=== PATIENT | male | born 1940 ===

== ENCOUNTER 2020-02-08 11:39 | Inpatient (IN) | payer OTHER, MEDICARE ==
[~2020-02-08] VITALS: Ht 177.8 cm; Wt 68.9 kg
[~2020-02-08 11:39] MED LIST: AMLO10 PO; ASPI325 PO; Bactrim Ds Tab1 EACH PO; CARV6.25 PO; CEPH500 PO; CLOP75 PO; FURO20 PO; HYDACE5 PO; HYDR1TAB94 PO; ISOD40ER PO; LISI20 PO; LISI5 PO; Lisinopril2.5 MG; MECL25 PO; NICO7 TOP; NITR.4SL SL; OMEP20ER PO; OXYC5 PO; ROSU10TA PO; SIMV20 PO
[2020-02-08 13:51] LABS: BASOPHILS ABSOLUTE AUTO 0.02 K/mm3 (0.00-0.23); BASOPHILS PERCENT AUTO 0 % (0-2); EOSINOPHILS ABSOLUTE AUTO 0.04 K/mm3 (0.00-0.68); EOSINOPHILS PERCENT AUTO 1 % (0-6); Hemoglobin 13.5 g/dL (13.5-17.5); IMMATURE GRAN ABSOLUTE AUTO 0.04 K/mm3 (0.00-0.10); IMMATURE GRAN PERCENT AUTO 1 % (0-1); LYMPHOCYTES ABSOLUTE AUTO 1.02 K/mm3 (0.84-5.20); LYMPHOCYTES PERCENT AUTO 16 % (21-46); MONOCYTES ABSOLUTE AUTO 0.55 K/mm3 (0.16-1.47); MONOCYTES PERCENT AUTO 9 % (4-13); Mean Corpuscular HGB 29.4 pg (26.0-34.0); Mean Corpuscular HGB Conc 32.1 g/dL (31.5-36.5); Mean Corpuscular Volume 92 fL (80-100); Mean Platelet Volume 10.8 fL (9.1-12.4); NEUTROPHILS ABSOLUTE AUTO 4.62 K/mm3 (1.96-9.15); NEUTROPHILS PERCENT AUTO 74 % (41-73); Platelet Count 161 K/mm3 (150-400); RDW Coefficient Variation 14.3 % (11.7-14.2); RDW Standard Deviation 48.1 fL (35.1-46.3); Red Blood Cell Count 4.59 M/mm3 (4.30-5.90); White Blood Cell Count 6.29 K/mm3 (4.00-11.30)
[2020-02-08 13:58] LABS: Alanine Aminotransfer (ALT/SGP 26 U/L (12-78); Albumin, Blood 3.1 g/dL (3.4-5.0); Albumin/Globulin Ratio 0.8 (0.8-1.8); Alk Phos 120 U/L (50-136); Anion Gap 8 mmol/L (6-16); Aspartate Aminotrans (AST/SGOT 28 U/L (12-37); Bilirubin, Total 0.7 mg/dL (0.1-1.0); Blood Urea Nitrogen 26 mg/dL (8-24); Bun/Creatinine Ratio 28.7 (12.0-20.0); CO2, Blood 20 mmol/L (21-32); Calcium, Blood 9.1 mg/dL (8.5-10.1); Chloride, Blood 113 mmol/L (98-108); Creatinine, Blood 0.91 mg/dL (0.60-1.20); Globulin, Blood 3.9 g/dL (2.2-4.0); Glomerular Filtration Rate >60 (60-); Glucose, Blood 92 mg/dL (70-99); Potassium, Blood 4.5 mmol/L (3.5-5.5); Sodium, Blood 141 mmol/L (136-145)
[2020-02-08] MEDS ORDERED: ATOR10 PO (15:19)
[2020-02-08] MEDS ORDERED: Vitamin D2000 UNIT PO (15:20)
[2020-02-08] MEDS ORDERED: DOCU100 PO (15:20)
[2020-02-08] MEDS ORDERED: METO25ER PO (15:21)
[2020-02-08] MEDS ORDERED: Isosorbide Mono60 MG PO (15:21)
[2020-02-08] MEDS ORDERED: TAMS.4ER PO (15:21)
[2020-02-08] MEDS ORDERED: B-1100 M1 PO (15:22)
[2020-02-08 17:17] LABS: International Normalized Ratio 1.03
[2020-02-08] MEDS ORDERED: CYAN500 PO (18:43)
[2020-02-08 20:27] LABS: U Amphetamine Screen Not Detected; U Barbituate Screen Not Detected; U Benzodiazapine Screen Not Detected; U Buprenorphine Screen Not Detected; U Cannabinoids Screen Not Detected; U Cocaine Screen Not Detected; U Methadone Screen Not Detected; U Methamphetamine Screen DETECTED; U Opiates Screen DETECTED; U Oxycodone Screen Not Detected; U Phencyclidine Screen Not Detected; U Propoxyphene Screen Not Detected
--- NOTE | 2020-02-08 21:21 | NUR ---
ASSUMED CARE OF PATIENT AT APPROXIMATELY 1900 FROM GABE Jarrett RN. PATIENT ARRIVED TO PCU SHORTLY BEFORE SHIFT CHANGE. PATIENT ANXIOUS; REPORTS HE FEELS LIKE HE IS STARTING TO GO THROUGH WITHDRAWALS; REPORTS USED HEROIN THIS MORNING; DAYSHIFT RN CALLED KATHARINE ELLIOTT AND METHADONE ORDERED AND GIVEN PER ORDER; PATIENT REPORTS METHODONE HELPED. U TOX SENT. PATIENT REPORTS HE IS SHORT OF BREATH; REPORTS HE FELT THIS WAY THIS MORNING. PATIENT DENIES CP/PRESSURE, PAIN ELSEWHERE, NUMBNESS, TINGLING, DIZZINESS OR NAUSEA. ADMISSION COMPLETE. HEPARIN GTT INTO KARLA POWERGLIDE; NS INFUSING INTO LEFT EJ IV. NSR/ST W/ BBB ON TELE; OXYGEN SATURATION ABOVE 90% ON 2LPM VIA NC. PATIENT REPORTS HE USES HIS GIRLFRIENDS OXYGEN AT HOME> CALLED KATHARINE ELLIOTT TO REPORT INCREASE IN TROPONIN FROM 1.9 TO 2.680 AT APPROXIMATELY 2039; ALSO REPORTED PATIENT ANXIOUS AND DYSPNEA; ORDERS FOR XANAX. DISCUSSED PATIENT SMOKES 5 CIGARETTES A DAY; ORDERS RECIEVED. PATIENT CURRENTLY RESTING IN BED; CALL LIGHT IN REACH; BED IN LOWEST POSISTION; BED ALARM ON; WILL CONTINUE TO MONITOR AND ASSESS UNTIL END OF SHIFT.
--- NOTE | 2020-02-08 22:22 | NUR ---
CALLED KATHARINE ELLIOTT TO REPORT PATIENT'S REPORT OF SHORTNESS OF BREATH; PATIENT REPORT HE FELT THIS WAY THIS MORNING AND FELT BETTER AFTER HE USES HEROIN; OXYGEN SATURATION ABOVE 90% ON ROOM; 2LPM VIA NC IN PLACE. ORDERS FOR ONE TIME DOSE OF METHADONE. WILL CONTINUE TO MONITOR AND ASSESS UNTIL END OF SHIFT.
--- NOTE | 2020-02-08 22:41 | NUR ---
PATIENT ANXIOUS; REPORTS "I JUST NEED TO GET UP AND WALK AROUND" PATIENT REPORTS SHORTNESS OF BREATH SITTING IN BED. PATIENT REPORTS "I JUST NEED TO GO THROUGH THIS". PATIENT ROTATES SITTING ON SIDE OF BED TO LAYING IN BED FREQUENTLY; REFUSED RECLINER AND BEDSIDE FAN. WILL CONTINUE TO MONITOR AND ASSESS UNTIL END OF SHIFT.
--- NOTE | 2020-02-08 23:11 | NUR ---
PATIENT UNSTEADY ON FEET; ANXIOUS; ATTEMPTING TO GET OUT OF BED BUT UNSURE WHERE HE WANTS TO GO. DISCUSSED WITH DEPUTY COURT DAN M. AND NURSING EXAMINER OF CURRENCY; PATIENT TO BE MONITORED ON CAMERA IN ROOM.
--- NOTE | 2020-02-08 23:39 | NUR ---
PATIENT APPEARS MORE RELAXED SITTING IN BED; REPORTS 2ND DOSE OF METHADONE HELPED A LITTLE "AND I CANNOT BE STILL".
[2020-02-09 02:39] LABS: Hematocrit 39.8 % (37.0-53.0); Mean Corpuscular HGB 29.7 pg (26.0-34.0); Mean Corpuscular HGB Conc 32.7 g/dL (31.5-36.5); Mean Corpuscular Volume 91 fL (80-100); Mean Platelet Volume 10.6 fL (9.1-12.4); Platelet Count 173 K/mm3 (150-400); RDW Coefficient Variation 14.3 % (11.7-14.2); Red Blood Cell Count 4.37 M/mm3 (4.30-5.90); White Blood Cell Count 6.09 K/mm3 (4.00-11.30)
[2020-02-09 03:11] LABS: Alanine Aminotransfer (ALT/SGP 25 U/L (12-78); Albumin, Blood 2.8 g/dL (3.4-5.0); Albumin/Globulin Ratio 0.8 (0.8-1.8); Alk Phos 112 U/L (50-136); Anion Gap 6 mmol/L (6-16); Aspartate Aminotrans (AST/SGOT 37 U/L (12-37); Bilirubin, Total 0.7 mg/dL (0.1-1.0); Blood Urea Nitrogen 22 mg/dL (8-24); Bun/Creatinine Ratio 21.4 (12.0-20.0); CO2, Blood 22 mmol/L (21-32); Calcium, Blood 8.4 mg/dL (8.5-10.1); Chloride, Blood 116 mmol/L (98-108); Creatinine, Blood 1.03 mg/dL (0.60-1.20); Globulin, Blood 3.4 g/dL (2.2-4.0); Glomerular Filtration Rate >60 (60-); Glucose, Blood 97 mg/dL (70-99); Magnesium, Blood 2.1 mg/dL (1.6-2.4); Potassium, Blood 4.7 mmol/L (3.5-5.5); Sodium, Blood 144 mmol/L (136-145); Total Protein, Blood 6.2 g/dL (6.4-8.2)
--- NOTE | 2020-02-09 05:08 | NUR ---
PATIENT REPORTS HE "FEELS IT COMING ON" AND REQUEST MORE METHADONE. CALLED DR. YATES. ORDERS RECIEVED.
--- NOTE | 2020-02-09 06:12 | NUR ---
PATIENT TROPONIN TRENDING UP; 3 TOTAL METHADONE PO GIVEN PER ORDER; PATIENT SLEPT ABOUT FOUR HOUR LAST NIGHT. CARDIOLOGY CONSULT CALLED IN; DR. VAUGHN TO SEE PATIENT. NPO SINCE MIDNIGHT. VSS. WILL CONTINUE TO MONITOR AND ASSESS UNTIL END OF SHIFT.
--- NOTE | 2020-02-09 09:11 | NUR ---
ASSUMED CARE: PT ALERT BUT SLIGHTLY AGITATED AND CONFUSED PT AWARE THAT HE IS HAVING WITHDRAWAL SYMPTOMS, BED ALARM ON FOR SSAFETY. PT DENIES ANY CHEST PAIN, SHOWS AN INCREASE ON RESPIRATORY RATE OCCASIONALLY, PT WAS GIVEN HIS METHADONE DOSE THIS AM PT STARTED TO CALM DOWN AND IS RESTING IN BED. DR BAXTER CAME AND SEE PT WILL ORDER CAT SCAN TO R/O PE. CONTINUES ON HEPARIN GTT AT 12UKG/HR. VITALS STABLE, AFEBILE, ON ROOMAIR SATS MID 90'S. WILL MONITOR
--- NOTE | 2020-02-09 12:17 | NUR ---
echocardiogram complete
--- NOTE | 2020-02-09 16:02 | NUR ---
PT CONSISTENTLY COMPLAINING OF PAIN ON THE LOWER ABDOMEN, NO PAIN UPON PALPATION MOSTLY CRAMP LIKE PAIN. METHADONE GIVEN PER SCHEDULE BUT WAS NOT EFFECTIVE TYLENOL WAS ALSO GIVEN IN BETWEEN NO EFFECT. PROVIDER MADE AWARE PT WAS STARTED ON DILAUDID 0.5MG Q4HR PRN FIRST DOSE GIVEN AND WAS EFFECTIVE BUT THEN PT C/O DYSPNEA THIS TIME RR NOTED TO BE HIGH ON THE 30'S LUNGS COARSE ON THE RIGHT LOBE SATS ABOVE 90% ON ROOMAIR PT CURRENTLY ON 2L FOR SUPPORT AND COMFORT SATS 95%. CT RESULT PE NEGATIVE CONSISTENT ON PNA, PROVIDER MADE AWARE WILL ORDER ABO. PT WAS ALSO BLADDER SCANNED TWICE FOR THE SHIFT HAD 300MLS RETAINED URINE PT WAS ONLY ABLE TO VOID 100MLS COUPLE TIMES. PT HAS ORDER FOR STRAIGHT CATH IF RETAINING >300MLS, PT REFUSED TO BE STRAIGHT CATH AT THIS TIME. PT IN BED REMAINS ALERT TO SELF CONFUSED MOST OF THE TIME, BED ALARM ON, HEROIN WITHDRAWAL SYMPTOMS, WILL MONITOR
--- NOTE | 2020-02-09 16:10 | NUR ---
PT NOW ON ROOMAIR TOLERATING WELL SATS ABOVE 90%, VITALS REMAINED STABLE. LAST DOSE OF REMDESIVIR ADMINISTERED THIS AM, NO ACUTE CHANGE FOR THE SHIFT. ABLE TO MAKE NEEDS KNOWN. WCTM
[2020-02-09 18:57] LABS: PCO2 Arterial 19.6 mmHg (35-45); PO2 Arterial 58.2 mmHg (80-100); pH Blood Arterial 7.29 (7.35-7.45)
--- NOTE | 2020-02-09 19:13 | NUR ---
PT CONTINUES TO COMPLAIN OF SHORTNESS OF BREATH, SATS ON THE 88-94%, LUNGS COARSE/CRACKLES ON THE RIGHT LOBE, BD PROTOCOL ORDERED FOR RT, BP 87/56 RR WAS AT 32 PT APPEARS LETARGIC, RT RECOMMENDED BIPAP, STAT ABG DONE RESPIRATORY ACIDOSIS NOTED PH 7.29. CO2 CL AT 19L. ONE TIME DOSE LASIX ALSO ORDERED EVEN BP IS LOW OKAY TO GIVE BOLUS IF BP DROPS. ALSO PT IS RULED OUT FOR COVID, RAPID COVID PENDING DUE TO SYMPTOMS. DR BAXTER AWARE OF PT'S SITUATION. REPORT GIVEN TO ONCOMING SHIFT
--- NOTE | 2020-02-09 19:15 | NUR ---
CALLED DR. OWENS TO REPORT ABG RESULTS; ORDERS RECIEVED. PATIENT BP LOW, DYSPENA ON BIPAP, IV LASIX TO BE GIVEN; PATIENT URINATES 50-100MLS EVERY HOUR; REQUESTED URINARY CATHETER; ORDERS RECIEVED.
[2020-02-09 19:52] LABS: Source, Urine Catheter
[2020-02-09 19:55] LABS: Bilirubin, Urine Neg (Neg); Blood, Urine 1+ (Neg); Glucose Qualitative, Urine Neg (Neg); Ketones, Urine 2+ (Neg); Leukocyte Esterase, Urine Neg (Neg); Nitrite, Urine Neg (Neg); Protein, Urine 1+ (Neg); Urobilinogen, Urine NORM (Normal)
[2020-02-09 19:56] LABS: Appearance, Urine Clear (Clear); Color, Urine Yellow (P-Yellow)
[2020-02-09 20:02] LABS: Amorphous Light (0-Heavy); Bacteria Rare /hpf; Mucus Light (0-Heavy); Red Blood Cells, Urine 0-2 /hpf (0-2); Squamous Epithelial Cells Rare /hpf (Few); White Blood Cells, Urine 0-2 /hpf (0-5)
[2020-02-09 20:12] LABS: Anion Gap 12 mmol/L (6-16); Blood Urea Nitrogen 20 mg/dL (8-24); CO2, Blood 16 mmol/L (21-32); Calcium, Blood 8.2 mg/dL (8.5-10.1); Chloride, Blood 117 mmol/L (98-108); Creatinine, Blood 1.11 mg/dL (0.60-1.20); Glomerular Filtration Rate >60 (60-); Glucose, Blood 230 mg/dL (70-99); Potassium, Blood 4.4 mmol/L (3.5-5.5); Sodium, Blood 145 mmol/L (136-145)
--- NOTE | 2020-02-09 21:05 | NUR ---
PATIENT PULLED BIPAP OFF; CONFUSED; NOT MAKING CLEAR STATEMENTS; EASILY FALLS BACK TO SLEEP.
--- NOTE | 2020-02-09 21:45 | NUR ---
ASSUMED CARE OF PATIENT AT APPROXIMATELY 1900 FROM LOIS Mcduffie RN. PATIENT LETHARGIC; PATIENT ABLE TO STAY ABOUT FOUR WORDS TOTAL SINCE START OF SHIFT. AT START OF SHIFT PATIENT WAS GIVEN IV LASIX; CURRENTLY ON M-SERIES BIPAP; CONFUSED AND PULLING AT MASK AT TIMES; DESATS TO 80'S; 3-4LPM VIA NC WHEN OFF BIPAP; URINARY CATH PLACED BY SALES PRODUCT MANAGER. PATIENT PULLS AT BIPAP MASK AT TIMES. SEE PREVIOUS NOTES FOR OTHER UPDATES. PATIENT HAS PAIN IN ABDOMEN; MEDICATED ONCE PER EMAR. NSR ON TELE. PATIENT BEING REPOSISTIONED. IN ROOM CAMERA IN USE FOR HIGH FALL RISK PATIENT. HEPARIN GTT AND IVF INFUSING PER ORDER. PATIENT CURRENTLY RESTING IN BED; CALL LIGHT IN REACH; BED IN LOWEST POSISTION; BED ALARM ON; WILL CONTINUE TO MONITOR AND ASSESS UNTIL END OF SHIFT.
--- NOTE | 2020-02-10 02:03 | NUR ---
PATIENT MORE ORIENTED; CALLED OUT FOR NURSE AND ASKED "WHAT HAPPENED LAST NIGHT". WILL CONTINUE TO MONITOR AND ASSESS UNTIL END OF SHIFT.
[2020-02-10 03:45] LABS: BASOPHILS ABSOLUTE AUTO 0.01 K/mm3 (0.00-0.23); BASOPHILS PERCENT AUTO 0 % (0-2); EOSINOPHILS PERCENT AUTO 0 % (0-6); Hematocrit 40.9 % (37.0-53.0); Hemoglobin 13.4 g/dL (13.5-17.5); IMMATURE GRAN ABSOLUTE AUTO 0.03 K/mm3 (0.00-0.10); IMMATURE GRAN PERCENT AUTO 1 % (0-1); LYMPHOCYTES ABSOLUTE AUTO 0.68 K/mm3 (0.84-5.20); LYMPHOCYTES PERCENT AUTO 12 % (21-46); MONOCYTES ABSOLUTE AUTO 0.36 K/mm3 (0.16-1.47); MONOCYTES PERCENT AUTO 6 % (4-13); Mean Corpuscular HGB 30.2 pg (26.0-34.0); Mean Corpuscular HGB Conc 32.8 g/dL (31.5-36.5); Mean Corpuscular Volume 92 fL (80-100); Mean Platelet Volume 10.8 fL (9.1-12.4); NEUTROPHILS ABSOLUTE AUTO 4.56 K/mm3 (1.96-9.15); NEUTROPHILS PERCENT AUTO 81 % (41-73); Platelet Count 167 K/mm3 (150-400); RDW Coefficient Variation 14.6 % (11.7-14.2); RDW Standard Deviation 49.6 fL (35.1-46.3); Red Blood Cell Count 4.44 M/mm3 (4.30-5.90); White Blood Cell Count 5.64 K/mm3 (4.00-11.30)
[2020-02-10 04:03] LABS: Anion Gap 7 mmol/L (6-16); Blood Urea Nitrogen 21 mg/dL (8-24); Bun/Creatinine Ratio 19.8 (12.0-20.0); CO2, Blood 23 mmol/L (21-32); Calcium, Blood 8.4 mg/dL (8.5-10.1); Chloride, Blood 117 mmol/L (98-108); Creatinine, Blood 1.06 mg/dL (0.60-1.20); Glomerular Filtration Rate >60 (60-); Glucose, Blood 117 mg/dL (70-99); Potassium, Blood 4.5 mmol/L (3.5-5.5); Sodium, Blood 147 mmol/L (136-145)
--- NOTE | 2020-02-10 06:15 | NUR ---
PATIENT SLEPT ABOUT NINE HOURS LAST NIGHT. BECOMING MORE ORIENTED THROUGH OUT THE MORNING. VSS. WILL CONTINUE TO MONITOR AND ASSESS UNTIL END OF SHIFT. REFUSED BIPAP REST OF NIGHT.
--- NOTE | 2020-02-10 10:30 | NUR ---
ASSUMED CARE: PT ALERT STILL HAS AGITAION AND CONFUSION. VITALS HRR ST 90'S, BP SYSTOLIC 115'S, SATS ABOVE 90% ON 3L OF O2, AFEBRILE. PT REFUSES TO WEAR BIPAP PT STATED HIS BREATHING IS WORSE WITH THE MASK ON. ALSO STILL C/O ABDOMINAL CRAMPS 5/10 IV DILAUDID GIVEN AND WAS EFFECTIVE. PT ALSO REQUESTED XANAX FOR ANXIETY. TO START PT ON LASIX 20MG PO QD, STOP FLUIDS, VBG PENDING. PT REMAINS ON HEPARIN GTT AT 10U/KG/HR. BED ALARM ON FOR SAFETY, PT HAD ENSURE THIS AM. PT CURRENTLY RESTING IN BED CALL LIGHTS WITHIN REACH WILL MONITOR
[2020-02-10 11:26] LABS: Base Excess Venous -4.5 mmol/L; Bicarbonate Venous 20.4 mmol/L (24.0-30.0); PCO2 Venous 33.8 mmHg (38-42); PO2 Venous 27.7 mmHg (38-42); pH Blood Venous 7.39 (7.34-7.37)
--- NOTE | 2020-02-10 15:04 | NUR ---
PT IN BED, ON 3L OF O2 VIA NASAL CANNULA, STILL FEELING SHORT OF BREATH SATS ABOVE 90%. PT WAS ABLE TO AMBULATE WITH ASSIST TO THE BATHROOM TWICE ATTEMPTED TO HAVE BOWEL MOVEMENT WITH NO SUCCESS, XANAX AND IV DILAUDID GIVEN FOR PAIN AND ANXIETY. PT REFUSES TO EAT MEALS STATING HE DOESN'T EAT HE ONLY DRINK ENSURE. PT HAD 2 CARTON OF ENSURE TOTAL AT THIS TIME. BED ALARM FOR SAFETY. WILL MONITOR
--- NOTE | 2020-02-10 19:49 | NUR ---
CARE ASSUMED REPORT RECEIVED, CARE ASSUMED AT 1900. PT ASLEEP ON ROUNDS. HEPARIN GTT PLACED ON STANDBY, PTT DRAWN AND SENT TO LAB. DURING ASSESSMENT, PT MINIMALLY AROUSABLE. MOANS ONLY. AFTER MULTIPLE ATTEMPTS TO AROUSE PT SLURS, "WHO ARE YOU?" THEN GOES BACK TO SLEEP. PUPILS 1 MM, EQUALLY RESPONSIVE BUT SLUGGISH. PT GRIMACES AND ATTEMPTS TO KEEP EYES CLOSED DURING ASSESSMENT. PT PLACED ON BIPAP AT BEDSIDE. CONTINUOUS PULSE OX IN PLACE. VITALS STABLE. SEE SHIFT ASSESSMENT. SPOKE WITH JUAN ENTRY LEVEL BUYER NURSE REGARDING PT'S DROWSINESS AND APPARENTLY PT WAS ACTING SIMILARLY YESTERDAY EVENING. PT ALSO RECEIVED XANAX AT APPROX 1700, WILL CONTINUE TO MONITOR NEURO STATUS.
[2020-02-11 05:08] LABS: Anion Gap 5 mmol/L (6-16); Blood Urea Nitrogen 26 mg/dL (8-24); Bun/Creatinine Ratio 25.5 (12.0-20.0); CO2, Blood 24 mmol/L (21-32); Calcium, Blood 8.6 mg/dL (8.5-10.1); Chloride, Blood 118 mmol/L (98-108); Creatinine, Blood 1.02 mg/dL (0.60-1.20); Glomerular Filtration Rate >60 (60-); Glucose, Blood 137 mg/dL (70-99); Magnesium, Blood 2.4 mg/dL (1.6-2.4); Sodium, Blood 147 mmol/L (136-145)
--- NOTE | 2020-02-11 06:38 | NUR ---
SUMMARY PT WORE BIPAP UNTIL APPROX 0300, GRADUALLY BECOMING MORE AROUSABLE THE NIGHT PROGRESSED. THIS MORNING, PT REPORTS BEING IN AGONIZING WITHDRAWALS. GIVEN DILAUDID WHICH PT REPORTED UNSUCCESSFUL. CALLED MARTI, ORDER FOR METHADONE WHICH WAS GIVEN. PT REPORTS DOSE NOT LARGE ENOUGH. AFTER APPROX AN HOUR, CALLED MARTI AND ADDITIONAL DOSE WAS GIVEN. PT ORIENTED BUT FORGETFUL AND NOT RECEPTIVE TO EDUCATION. FLIGHT OF IDEAS PRESENT. PT REPORTS, "I AM LEAVING IN THE MORNING," BUT NOW THAT HE HAS HAD FULL 30 MG OF METHADONE IS RESTING QUIETLY. AFEBRILE THROUGHOUT NIGHT. BP STABLE. SPO2 CONSISTENTLY IN 90'S THROUGHOUT NIGHT. PT HAVING INCREASED NUMBER OF PVCS AND HAD ONE 8 BEAT RUN OF VTACH. PER DR. KIDD, LABS ORDERED AND DRAWN. SEE LAB RESULTS. PT'S RESPIRATORY PATTERN INTERMITTENTLY FAST IN LOW 30'S, AND THEN PT RECOVERS AND BREATHS IN 18-24. DECREASED URINE OUTPUT BUT PT HAS ALSO ONLY HAD A FEW SIPS OF WATER ALL NIGHT. ENCOURAGING INCREASED PO INTAKE. HEPARIN GTT INFUSING AND ADJUSTED PER ORDERS. PT HAS DENIED CHEST PAIN/PRESSURE OR DIZZINESS THROUGHOUT SHIFT. BED ALARM IN PLACE PT DOES NOT CALL APPROPRIATELY FOR NEEDS.
--- NOTE | 2020-02-11 09:28 | NUR ---
PT ALERT AND CONVERSIVE TO STAFF MUCH AWARE OF WHAT'S GOING ON WAS ABLE TO TALK TO THE PROVIDER, SINCE PT WAS WANTING TO LEAVE AMA, EXPLAINED THE RISKS AND HIS CURRENT CONDITION, PT WAS ABLE TO UNDERSTAND AND COOPERATE. CURRENTLY ON METHADONE 30MG BID FOR WITHDRAWAL, IV DILAUDID AND XANAX. PT MUCH COMPLIANT TODAY WITH BIPAP STILL C/O SOB. TO START COUMADIN TODAY TO CONTINUE HEPARIN GTT PER PHARMACY. ST EVAL AND TREAT PT C/O DIFFICULTY SWALLOWING REGULAR FOOD THAT'S WHY HE PREFERS TO DRINK ENSURE INSTEAD. VITALS STABLE PT CURRENTLY ON BIPAP, RESTING IN BED NO OTHER ISSUES, ABLE TO MAKE NEEDS KNOWN, WILL MONITOR
--- NOTE | 2020-02-11 12:45 | NUR ---
[facility] CARE CONSULT VISIT: Referral received this am for discussion re: goals and code status, advanced care planning. t/c received from his RN with request to visit also, due to pt wanting to leave AMA and wanting to discuss his code status. I introduced myself and the purpose of my visit. Initially pt stated he wasn't interested in talking but then became very receptive to conversation when I explained that we wanted to make sure the care we were providing agreed with his wishes. He stated he wanted to "peacefully, in my sleep". I educated him on his current code status and what that meant if his heart were to fail/stop or he was unable to breathe without assistance. He stated he did not want CPR and he did not want to be intubated. We reviewed the current care he is receiving, including noninvasive respiratory support at times. Pt is agreeable to bipap, IV antibiotics and the treatment he is currently receiving. Pt appeared fairly anxious on my arrival but the longer we discussed his wishes he seemed to be much more comfortable. He expressed appreciation for the visit and conversation. I asked who his NOK or surrogate decision maker would be if he could not express his wishes to us and he stated his son Dallas Guzman. Dallas is listed on pt's face sheed as his NOK also and contact info is there. Pt states he is not experiencing pain and primary distressing s/s is stil SOB. Report given to and pt's RN on my visit and pt's request to change code status to DNR.
--- NOTE | 2020-02-11 17:34 | NUR ---
POLST - completed and signed, copied and sent to Medical records. Copy placed on chart. Original in chart to send home with pt on discharge. Pal care follow up with pt planned as supportive visits later in the week.
--- NOTE | 2020-02-11 18:19 | NUR ---
PT SUMMARY; PT REMAINED ALERT COMPLIANT AND COOPERATIVE WITH CARES. VITALS HAS BEEN STABLE. PALLIATIVE CARE TALK TO PT, PT IS NOW DNR STATUS PER PT WISHES. PT CONTINUES HAVING WITHDRAWAL SYMPTOMS, METHADONE INCREASED TO 40MG BID. PT ONLY HAD 200MLS OUTPUT FOR TODAY, PT HAD 4 BOTTLES OF ENSURE A SUPPLEMENT, SHOWS ONLY 30MLS RETAINED URINE PER BLADDER SCAN. PT WAS INSTRUCTED TO DRINK WATER, PT AGREEABLE WILL FF-UP IN AM. PT WAS SEEN BY SPEECH THERAPIST, SOFT BITE SIZE AT THIS TIME. [facility]
[2020-02-12 04:19] LABS: International Normalized Ratio 1.14; Prothrombin Time Results 12.1 Sec (9.7-11.5)
--- NOTE | 2020-02-12 05:43 | NUR ---
SHIFT SUMMARY PATIENT VERY ANXIOUS AND AGITATED AT THE BEGINNING OF THE SHIFT. PATIENT ALSO COMPLAINING OF NAUSEA. PATIENT MEDICATED FOR NAUSEA AND ANXIETY. PATIENT THEN ABLE TO SETTLED DOWN AND HAS BEEN VERY SLEEPY SINCE. HOWEVER, PATIENT EASILY AWAKENS TO VERBAL STIMULI AND TO TOUCH. PATIENT HAS BEEN ON 4L VIA N/C THROUGHOUT THE NIGHT. PATIENT APPEARS TO BE RESTING COMFORTABLY. PATIENT WITH MINIMAL URINE OUTPUT. PATIENT CURRENTLY APPEARS TO BE ASLEEP. WILL CONTINUE TO MONITOR PATIENT AND REPORT TO ONCOMING RN.
--- NOTE | 2020-02-12 18:40 | NUR ---
PCU DAYSHIFT SUMMARY PATIENT ALERT TO SELF AND LOCATION - FORGETFUL TO SITUATION AND MEDICAL HISTORY. PATIENT REPORTS THAT HE IS A CURRENTLY DAILY HEROIN USER AND IS HOPING TO QUIT, STATES HE IS VERY ADDICTED. PATIENT IS ON ROOM AIR AT HOME BUT IS REQUIRING 4 LPM NC TO MAINTAIN 92% OR GREATER SPO2 - PATIENT REFUSED CONTINUOUS BIOX. PATIENT PALE, MALNURISHED WITH SUNKEN EYE SOCKETS. HEART RATE SR WITH PAC'S IN THE 80'S. PATIENT VERBALIZED THAT HE WANTED TO LEAVE AMA X3 THIS SHIFT - REDIRECTED WITH PATIENT NEEDING TO DETOX (HIS WISH) AND OXYGEN REQUIREMENTS. MD BAXTER AWARE. PATIENT AMBULATED WITH WEAK GAIT AND POOR TOLERANCE TO BATHROOM WITH FWW. WILL CONTINUE TO MONITOR AND REPORT TO NOC SHIFT RN. CALL LIGHT W/I REACH.
[2020-02-13 05:28] LABS: BASOPHILS ABSOLUTE AUTO 0.03 K/mm3 (0.00-0.23); BASOPHILS PERCENT AUTO 0 % (0-2); EOSINOPHILS ABSOLUTE AUTO 0.01 K/mm3 (0.00-0.68); EOSINOPHILS PERCENT AUTO 0 % (0-6); Hematocrit 36.4 % (37.0-53.0); Hemoglobin 11.5 g/dL (13.5-17.5); IMMATURE GRAN ABSOLUTE AUTO 0.07 K/mm3 (0.00-0.10); IMMATURE GRAN PERCENT AUTO 1 % (0-1); LYMPHOCYTES ABSOLUTE AUTO 0.88 K/mm3 (0.84-5.20); LYMPHOCYTES PERCENT AUTO 9 % (21-46); MONOCYTES ABSOLUTE AUTO 0.72 K/mm3 (0.16-1.47); MONOCYTES PERCENT AUTO 7 % (4-13); Mean Corpuscular HGB 29.9 pg (26.0-34.0); Mean Corpuscular HGB Conc 31.6 g/dL (31.5-36.5); Mean Corpuscular Volume 95 fL (80-100); Mean Platelet Volume 11.9 fL (9.1-12.4); NEUTROPHILS PERCENT AUTO 82 % (41-73); Platelet Count 131 K/mm3 (150-400); RDW Coefficient Variation 14.7 % (11.7-14.2); Red Blood Cell Count 3.84 M/mm3 (4.30-5.90); White Blood Cell Count 9.71 K/mm3 (4.00-11.30)
[2020-02-13 05:30] LABS: International Normalized Ratio 1.2; Prothrombin Time Results 12.7 Sec (9.7-11.5)
[2020-02-13 05:36] LABS: Bun/Creatinine Ratio 31.2 (12.0-20.0); Calcium, Blood 8.6 mg/dL (8.5-10.1); Creatinine, Blood 1.57 mg/dL (0.60-1.20); Potassium, Blood 4.8 mmol/L (3.5-5.5)
--- NOTE | 2020-02-13 05:59 | NUR ---
SHIFT SUMMARY PT LETHARGIC & MOANS; DOES ANSWER QUESTIONS; BECOMES AGITATED AT TIMES AND DEFFENSIVE; VSS; BP SOFT AT TIMES; SR W/ PVC NOTED ON TELE; DENIES CHEST PAIN; O2 SATS >93 ON 4L NC; CPAP AT BEDTIME; LANDAVERDE DRAINING DK RAUL; PT MOVES FREQUENTLY IN BED; CALL LIGHT IN REACH; BED IN LOWEST POSITION; WILL CONTINUE TO MONITOR CLOSELY UNTIL HAND OFF TO DAY SHIFT RN.
--- NOTE | 2020-02-13 14:48 | NUR ---
Spiritual care visit conducted. Patient is lying in bed and resting with no one else present in the rm. Patient struggles to communicate in that he mumbles and it takes great effort to get the words out. Patient was able to affirm that he is a Latter Day and that he would like me to say a prayer. I gladly provide prayer. Patient is able to repeat an "Amen" at the end of the prayer and verbalize a "thank you." I will continue to remain available to patient and family.
--- NOTE | 2020-02-13 17:50 | NUR ---
SHIFT ASSESMENT; SOMMULENT DURING MOST OF SHIFT. AWAKES TO VERBAL STIMULI AND IS ORIENTED X2 WHEN AWAKE, CONFUSED ON TIME AND SITUATION. 02 4L VIA NC, LANDAVERDE IN PLACE DRAINING RAUL URINE. NO ACUTE CHANGES DURING SHIFT. WILL CONTINUE TO MONITOR UNTIL CHANGE OF SHIFT.
--- NOTE | 2020-02-13 21:30 | NUR ---
ASSUMED CARE OF PATIENT AT APPROXIMATELY 1915 FROM TRENT Mcduffie RN. PATIENT VERY DROWSY; WAKES TO VERBAL STIMULUS; ASKS IF IT IS TIME FOR HIS METHADONE YET; FALLS BACK ASLEEP. PATIENT DENIES PAIN, NUMBNESS, TINGLING, DIZZINESS AND NAUSEA. NSR W/ BBB ON TELE; OXYGEN SATURATION ABOVE 90% ON 3 VIA NC; BIPAP IN ROOM. URINARY CATHETER DRAINING DARK RAUL URINE. HEPARIN GTT INTO PG. PATIENT BEING REPOSISTIONED. PATIENT CURRENTLY RESTING IN BED; CALL LIGHT IN REACH; BED IN LOWEST POSISTION; BED ALARM ON; WILL CONTINUE TO MONITOR AND ASSESS UNTIL END OF SHIFT.
[2020-02-14 04:42] LABS: Bun/Creatinine Ratio 36.2 (12.0-20.0); Calcium, Blood 8.4 mg/dL (8.5-10.1); Creatinine, Blood 1.74 mg/dL (0.60-1.20)
[2020-02-14 04:43] LABS: International Normalized Ratio 1.66; Prothrombin Time Results 17.3 Sec (9.7-11.5)
--- NOTE | 2020-02-14 06:13 | NUR ---
NO ACUTE CHANGES TO REPORT. PATIENT SLEPT MOST OF SHIFT. PATIENT DROWSY; WAKES TO VERBAL STIMULUS; BEDBATH GIVEN; PG DRESSING CHANGED. VSS. NO ACUTE CHANGES TO REPORT. WILL CONTINUE TO MONITOR AND ASSESS UNTIL END OF SHIFT.
--- NOTE | 2020-02-14 08:12 | NUR ---
ASSUMED CARE AT 0700, REPORT FROM SHON WILEY. SLEEPING ON RIGHT SIDE, AWAKES TO VERBAL STIMULI. ORIENTED X3 WHEN AWAKE. 4L O2 VIA NC, LANDAVERDE CATH IN PLACE DRAINING RAUL URINE. HEPARIN INFUSING AT 13UNIT/KG. WILL CONTINUE TO MONITOR.
--- NOTE | 2020-02-14 15:12 | NUR ---
Called by nursing to come to room. Pt art came in to see what the paln is.Her name Bárbara Lozano. . She states pt is now living with her. States he was living in a trailer outside one of his sons houses. she states they were locking him out so he did not have access to shower or facilities. She brought him to live with her. She states her and her boyfriend have been caring for him. [place] She states no airconditioning and the heat is hard on him. They have both gotten jobs. She is agonizing over working versus careing for him. She states he gets veterans benefits and SS. Asked if his son is not willing to be involved would she assist with his care she stated yes. Advised if he becomes more frail or unable to make decision may need a guardian. She was open to helping. Notifies director career and they will meet with her. will see if hea has advance directive with [facility].
--- NOTE | 2020-02-14 17:27 | NUR ---
SPOKE WITH DR. OWENS REGARDING CREATINNE INCREASING TODAY AND URINE OUTPUT DECREASING. VERBAL ORDER GIVEN FOR NS IV @100ML/HR X24 HOURS.
--- NOTE | 2020-02-14 18:04 | NUR ---
SHIFT SUMMARY; SOMMULENT THROUGHOUT SHIFT. BED BATH IN FORMULA MAKER, Q2 TURNS MAINTAINED. WOKE TO VERBAL STIMULI. ORIENTED X3 WHEN AWAKE. REFUSES MEAL TRAYS BUT DRINKS ENSURE. IV HEPARIN INFUSING AT 12.5UNIT/KG PER ORDERS. NS STARTED AT 100ML/HR PER ORDERS FOR DECREASED URINE OUTPUT TODAY. 4L O2 VIA NC. WILL CONTINUE TO MONITOR AND TREAT UNTIL CHANGE OF SHIFT.
--- NOTE | 2020-02-14 21:50 | NUR ---
ASSUMED CARE OF PATIENT AT APPROXIMATELY 1905 FROM TRENT Mcduffie RN. PATIENT VERY DROWSY; WAKES TO VERBAL STIMULUS; FALLS BACK ASLEEP EASILY. PATIENT DENIES PAIN, NUMBNESS, TINGLING, DIZZINESS AND NAUSEA. NSR W/ BBB ON TELE; OXYGEN SATURATION ABOVE 90% ON 3 VIA NC; BIPAP IN ROOM; PATIENT PULLS OXYGEN TUBING OFF FREQUENTLY. URINARY CATHETER DRAINING DARK RAUL URINE. HEPARIN GTT INTO PG; IVF INFUSING PER ORDER. PATIENT BEING REPOSISTIONED. PATIENT CURRENTLY RESTING IN BED; CALL LIGHT IN REACH; BED IN LOWEST POSISTION; BED ALARM ON; WILL CONTINUE TO MONITOR AND ASSESS UNTIL END OF SHIFT.
[2020-02-15 06:54] LABS: International Normalized Ratio 2.91; Prothrombin Time Results 29.3 Sec (9.7-11.5)
[2020-02-15 06:56] LABS: Bun/Creatinine Ratio 40.6 (12.0-20.0); Calcium, Blood 8.4 mg/dL (8.5-10.1); Creatinine, Blood 1.87 mg/dL (0.60-1.20); Potassium, Blood 5.3 mmol/L (3.5-5.5)
--- NOTE | 2020-02-15 07:17 | NUR ---
PATIENT SLEPT MOST OF SHIFT. VSS. REPORT GIVEN TO CAYDEN Mcduffie RN.
[2020-02-15 12:28] LABS: Platelet Count 144 K/mm3 (150-400)
--- NOTE | 2020-02-15 17:19 | NUR ---
SHIFT SUMMARY PT LETHARGIC AND DROWSY THIS SHIFT, BUT RESPONDS TO VERBAL STIMULI. VS STABLE. O2 SATS REMAIN ABOVE 90% ON 3L NC. PT DENIES ANY PAIN. DISCUSSED PT'S LETHARGY WITH DR. OWENS AND METHADONE DECREASED. LANDAVERDE PATENT AND DRAINING DARK YELLOW URINE. NS INFUSING PER ORDERS. PT REPOSITIONED Q2H. WILL CONTINUE TO MONITOR AND REPORT TO ONCOMING RN. BED ALARM ON
--- NOTE | 2020-02-16 04:32 | NUR ---
SHIFT SUMMARY PT LETHARGIC THIS SHIFT; RESPONDS TO VERBAL W/ MOANING; PO MEDS HELD; VSS; NSR W/ BBB NOTED ON TELE; O2 SATS >93 ON BIPAP; TITRATED & ASSESSED BY RT AT BEDSIDE; IRREGULAR BREATHING NOTED; REPOSITIONED Q2; LANDAVERDE PATENT & DRAINING DK RAUL URINE; CALL LIGHT IN REACH; BED IN LOWEST POSITION; BED ALARM ON FOR SAFETY; WILL CONTINUE TO MONITOR CLOSELY UNTIL HAND OFF TO DAY SHIFT RN.
[2020-02-16 04:46] LABS: Bun/Creatinine Ratio 48.9 (12.0-20.0); Calcium, Blood 8.6 mg/dL (8.5-10.1); Creatinine, Blood 1.78 mg/dL (0.60-1.20); Potassium, Blood 5.2 mmol/L (3.5-5.5)
[2020-02-16 04:53] LABS: Prothrombin Time Results 44.6 Sec (9.7-11.5)
[2020-02-16 04:54] LABS: International Normalized Ratio 4.54
--- NOTE | 2020-02-16 17:09 | NUR ---
SHIFT SUMMARY NO ACUTE CHANGES NOTED THROUGH THE DAY. PT CONTINUES TO BE LETHARGIC THIS AFTERNOON, HE WILL WAKE AND RESPOND TO QUESTIONS UT QUICKLY FALLS BACK TO SLEEP. HYPERAPNEIC AT TIMES, ALTERNATES BETWEEN NC @4 L & BIPAP. PT WILL TAKE HIS O2 OFF AT TIMES. REORIENTATION PROVIDEDPRN. BED ALARM IS ON FOR SAFETY, Q2 TURNS. LANDAVERDE IS PATENT, URINE IS DARK YELLOW, & CLOUDY. METHADONE D/C TODAY PER HOSPITALIST. WCTM, CALL LIGHT IN REACH.
[2020-02-17 05:01] LABS: Bun/Creatinine Ratio 55.1 (12.0-20.0); Calcium, Blood 8.7 mg/dL (8.5-10.1); Creatinine, Blood 1.76 mg/dL (0.60-1.20); Potassium, Blood 5.4 mmol/L (3.5-5.5)
--- NOTE | 2020-02-17 05:13 | NUR ---
SHIFT SUMMARY PT LETHARGIC; NO ACUTE CHANGES THIS SHIFT; VSS; NSR NOTED ON TELE; ALTERNATES BETWEEN 4L NC AND BIPAP W/ 4L BLEED IN; O2 SATS REMAIN >93; PO MEDS HELD PT WAS UNABLE TO STAY ALERT LONG ENOUGH TO TAKE; LANDAVERDE PATENT & DRAINING DK RAUL; CALL LIGHT IN REACH; BED IN LOWEST POSITION; BED ALARM ON FOR SAFETY; WILL CONTINUE TO MONITOR CLOSELY UNTIL HAND OFF TO DAY SHIFT RN.
[2020-02-17 05:33] LABS: International Normalized Ratio 4.96; Prothrombin Time Results 48.5 Sec (9.7-11.5)
--- NOTE | 2020-02-17 13:30 | NUR ---
Received a call from nursing stating pt's son and DIL are visiting at the bedside and would like PC to come talk with them. Mamadou slept off and on during the visit today. He is drowsy and isn't able to follow commands consistently at this time. He removed his BIPAP mask several times during the visit, NC replaced. Nursing and RT notified that pt was not keeping mask on. Cont pulse oxim remained in low to mid 90s after placing pt on the NC. Spoke with Dallas and Kelsey. Asked them to tell me what they understood of the conversations they have had with Dr. Chatterjee. Dallas reports that he has talked with Dr. Chatterjee and that they have talked about hospice as an option. Dallas reports that his dad opened his eyes and smiled at him today when he arrived in pt's room. "If he's still alert and recognizes me, I can't sign him up for hospice yet" Dallas said. Dallas reports that family is unable to take pt home with them to care for him. They are interested in having Mamadou placed in a facility possibily the [facility] is he is eligible and getting some rehab to see if his strength can improve. They are not ready to consider hospice or comfort care at this point. Discussed pt's decline and recently and likely lengthy recovery process if he is able to participate in rehab. Discussed need for anti-coagulation for blood clot and the lab monitoring and dietary requirements that are necessary for that medication. Dallas reports that he doesn't feel that his dad would be able to manage that medication with labs and diet restrictions on his own. Discussed that placement in a facility will require a payor source. Dallas reports his dad receives SSI and they believe a VA pension however he doesn't own a home or car or have any other assests. Will have CM meet with Dallas and Kelsey tomorrow to discuss facility options, VA benefit elibility and other options for placement. Dallas reports that he works in the [employer] and isn't always available by phone. Dallas requests that he if cannot be reached that CM contact his Kelsey at [phone] as she can assist with answering questions and relay information to Dallas. Provided information on HH and hospice options as well as the booklet [employer] choices for loving people. Copy of POLST form provided to Dallas that pt completed earlier this week. Discussed AD. Dallas states he doesn't think his dad has one, however he is unable to tell us at this time. Request faxed to the [facility] to see if they have an AD on file in their system. Had tasneem discussion with Dallas and Kelsey that if Mamadou's condition contines to deteriorate or he is unable to work with therapy to rehab that they will need to rethink considering hospice as an option. Pt was clear on his POLST form that he is a DNR and would not want intubation. Explained to them that if Mamadou is unable to maintain his airway on the BIPAP that transitioning to comfort care would be a good option to manage his symptoms. Asked Dallas to consider his dad's quality of life and what he would want going forward. Dallas reports that he wants his dad to get better and be in a facility that could provide that care that he needs. Dallas's fear is that if Mamadou is able to go home at some point that he would likely resume his drug habits. Dallas and Kelsey were appreciative of the information and state that they will update Mamadou's family. PC will continue to follow for symptom managment and advanced care planning.
--- NOTE | 2020-02-17 19:41 | NUR ---
SUMMARY PT CONTINUES TO HAVE APNEIC BREATHING THROUGH OUT THE DAY, HE ALTERNATES BETWEEN THE NC & THE CPAP. HE IS LETHARGIC BUT WILL WAKE UP FOR SHORT MOMENTS AND ATTEMPTS TO COMMUICATE. HE HAS BEEN GIVEN HONEY THICK FLUIDS TODAY DUE TO POSSIBLE ASPIRATION RISKS, PO MEDS WERE HELD WELL. Q2 TURNS PROVIDED. PT'S FAMILY (SON'S) WERE IN TODAY, PALLIATIVE CARE WAS IN TO EDUCATE ABOUT LTC PLACEMENT AND HOSPICE. SPOKE WITH THE FAMILY WELL. CALL LIGHT IN REACH, REPORT GIVEN TO NOC RN.
[2020-02-18 04:50] LABS: Bun/Creatinine Ratio 66.9 (12.0-20.0); Calcium, Blood 8.7 mg/dL (8.5-10.1); Creatinine, Blood 1.51 mg/dL (0.60-1.20); Potassium, Blood 5.1 mmol/L (3.5-5.5)
[2020-02-18 05:05] LABS: Prothrombin Time Results 41.9 Sec (9.7-11.5)
[2020-02-18 05:06] LABS: International Normalized Ratio 4.25
--- NOTE | 2020-02-18 06:53 | NUR ---
SHIFT SUMMARY PT REMAINED LETHARGIC THIS SHIFT; PO MEDS HELD; VSS; NSR NOTED ON TELE; O2 SATS >93 ON 4L NC AND BIPAP; NO ACUTE CHANGES; REPOSITIONED Q2 HRS; PT MOANED W/ POSITIONING AND IS ABLE TO ANSWER YES/NO; CALL LIGHT IN REACH; BED IN LOWEST POSITION; WILL CONTINUE TO MONITOR UNTIL HAND OFF TO DAY SHIFT RN.
--- NOTE | 2020-02-18 18:00 | NUR ---
SUMMARY NO ACUTE CHANGES NOTED TODAY. PT HAS BEEN A LITLE MORE ALERT THIS EVENING AND HAS STARTED TO ASK FOR HIS METHADONE, THICKENED FLUIDS WERE ENC WHILE AWAKE, PT IS REFUSING FOOD. O2 VIA NC, RESP REMAIN LABORED AND APNEIC AT TIMES, Q2 TURNS. 550 ML'S NOTED IN THE [place]. CALL LIGHT IN REACH.
--- NOTE | 2020-02-18 22:30 | NUR ---
PT HEART RHYTM BECAME RAPID AND WIDE. IT APPEARED TO BE AFIB RVR WITH AN ABBARRENCY WITH ADDITIONAL MORPHOLOGY CHANGES THAT APPEARED TO BE CONSISTENT WITH V-TACH. PT STABLE AT THIS TIME, NORMOTENSIVE AND REMAINED AT BASELINE MENTATION. MD CALLED AND ORDERS AMIODARONE BOLUS INFUSION WELL MAITANCE DOSE TO FOLLOW
--- NOTE | 2020-02-18 23:00 | NUR ---
PT RIGH AFTER FIRST AMIODARONE BOLUS ENDED. WIDE COMPLEX RHYTHM WAS RECEPLACED BY COARSE V-FIB. OF PT WAS VERIFIED BY TWO RN'S VIA EKG READING AND PULSE CHECKS. MD NOTIFIED AND CALL ATTEMPT PLACED TO FAMILY, BUT NO FAMILY WAS REACHED AT THIS TIME, WILL TRY AGAIN SOON/
--- NOTE | 2020-02-18 23:30 | NUR ---
CALLS PLACED TO [facility], BUT STILL UNABLE TO REACH ANYONE. WILL WAIT FOR CALL BACK AND ATTEMPT AGAIN LATER
--- NOTE | 2020-02-18 23:42 | NUR ---
0004 ATTEMPT TO NOTIFY ANA, SON OF PATIENT [phone], [facility] DAUGHTER ED, NO ANSWER, MESSAGE LEFT TO CALL [facility].
== END 2020-02-19 04:01 | DRG 871 ==
LOC: ER 11:39 → PCU 16:36
PROVIDERS: Internal Medicine; Nurse Practitioner Acute Care; Pharmacist; Physician Assistant; ADMIT Internal Medicine
DX: A41.9 Sepsis, unspecified organism (principal); I21.4 Non-ST elevation (NSTEMI) myocardial infarction; I50.21 Acute systolic (congestive) heart failure; J18.9 Pneumonia, unspecified organism; J96.01 Acute respiratory failure with hypoxia; E87.2 Acidosis; R64 Cachexia; Z68.1 Body mass index [BMI] 19.9 or less, adult; I25.10 Atherosclerotic heart disease of native coronary artery without angina pectoris; Z95.5 Presence of coronary angioplasty implant and graft; F11.10 Opioid abuse, uncomplicated; E78.5 Hyperlipidemia, unspecified; B19.20 Unspecified viral hepatitis C without hepatic coma; I51.3 Intracardiac thrombosis, not elsewhere classified; F17.210 Nicotine dependence, cigarettes, uncomplicated; I25.5 Ischemic cardiomyopathy; Z66 Do not resuscitate
CPT/HCPCS: 36415; 36600; 71046; 71260; 76770; 80048; 80053; 81001; 82803; 83735; 83880; 84145; 84484; 85025; 85027; 85049; 85379; 85610; 85730; 92610; 93005; 93010; 93306; 94660; 94762; 99285-25; A9270; A9270-GY; C1751; J0456; J0696; J1170; J1644; J1940; J2405; J7030; J7050; J7120; Q9967; U0002